=== PATIENT | male | born 1985 | race Caucasian/White ===

== ENCOUNTER 2024-05-10 06:12 | Emergency (ER) | payer SELFPAY ==
[~2024-05-10] VITALS: Ht 182.9 cm; Wt 70.1 kg
[2024-05-10 06:19] VITALS: O2SAT 99
[2024-05-10 06:21] VITALS: BP 139/85; PULSE 77; RESP 20; O2SAT 100
[2024-05-10 07:48] LABS: CHLORIDE 105 mEq/L (98-107); POTASSIUM 4.3 mEq/L (3.5-5.1); SODIUM 139 mEq/L (136-145)
[2024-05-10 07:49] LABS: CALCIUM 9.5 mg/dL (8.7-10.4); CARBON DIOXIDE 28 mEq/L (21-32)
[2024-05-10 07:54] LABS: CREATININE 1.1 mg/dL (0.6-1.3); GLUCOSE 96 mg/dL (70-105); UREA NITROGEN BLOOD 11 mg/dL (9-23)
[2024-05-10 07:55] LABS: TROPONIN I HIGH SENSITIVITY 4 ng/L (3.0-53)
[2024-05-10] MEDS: ACETAMINOPHEN 325MG TABLET PO ONE ×2 (07:59→09:04)
[2024-05-10 08:04] LABS: BASOPHILS % 0.6 % (0.0-2.0); EOSINOPHILS % 4.5 % (0.0-5.0); HEMATOCRIT. 45.8 % (42.0-52.0); HEMOGLOBIN. 15.4 g/dL (14.0-18.0); LYMPHOCYTES % 17.7 % (20.0-50.0); MEAN CORPUSCULAR HEMOGLOBIN 29.5 pg (28.0-32.0); MEAN CORPUSCULAR HGB CONC 33.6 g/dL (31.0-37.0); MEAN CORPUSCULAR VOLUME 87.7 fL (80.0-94.0); MEAN PLATELET VOLUME 8.4 fl (7.4-10.4); MONOCYTES % 6.8 % (2.0-8.0); NEUTROPHILS % 70.4 % (40.0-76.0); PLATELET 222 x1000/uL (130-400); RED BLOOD CELL COUNT 5.22 mill/uL (4.7-6.1); RED CELL DISTRIBUTION WIDTH 13.2 % (11.6-14.6); WHITE BLOOD COUNT 8.1 x1000/uL (4.5-11.0)
[2024-05-10] MEDS ORDERED: ACET-2708 PO (08:49)
[2024-05-10 09:04] VITALS: TEMP 98.6
== END 2024-05-10 10:27 | disposition home or self-care (01) ==
LOC: ER 06:12
DX: R07.89 Other chest pain (principal); R06.02 Shortness of breath; J45.909 Unspecified asthma, uncomplicated
CPT/HCPCS: 36415; 71045; 80048; 84484; 85025; 85379; 99285